=== PATIENT | female | born 1950 | race Hispanic/Latino ===

== ENCOUNTER → 2023-05-05 | Outpatient (CLI) | payer MEDICARE | END | disposition home or self-care (01) | LOC: SHCH 14:25 | PROVIDERS: ATTEND Student in an Organized Health Care Education/Training Program | DX: I11.9 Hypertensive heart disease without heart failure (principal); R06.02 Shortness of breath | CPT/HCPCS: 93306 ==

== ENCOUNTER → 2025-09-20 | Outpatient (CLI) | payer MEDICARE ==
[2025-09-20 08:19] LABS: ASPARTATE AMINOTRANSFERASE 24.0 U/L (10-37); CREATININE 1.1 mg/dL (0.5-1.0); GLOMERULAR FILTR. RATE CALC 53.0 mL/min (>90); GLUCOSE,RANDOM 99.0 mg/dL (70-105); SODIUM SERUM 139.0 mmol/L (136-145); TOTAL PROTEIN, SERUM 7.6 g/dL (6.0-8.3); UREA NITROGEN, BLOOD 15.0 mg/dL (7-18)
== END | disposition home or self-care (01) ==
LOC: RAH 07:33
PROVIDERS: ATTEND Student in an Organized Health Care Education/Training Program
DX: R06.02 Shortness of breath (principal)
CPT/HCPCS: 36415; 80053

== ENCOUNTER → 2025-09-27 | Outpatient (CLI) | payer MEDICARE ==
[~2025-09-27] MED LIST: IOHEXOL-350 75 ML VIAL IV ONE
--- NOTE | 2025-09-27 13:53 | HMCIMG ---
EXAM: CTA NECK WITH AND WITHOUT CONTRAST CLINICAL HISTORY: Occlusion and stenosis of the carotid artery. TECHNIQUE: Axial CT images of the neck were obtained with and without contrast using a CT angiogram protocol targeted to the extracranial carotid and vertebral arteries. 3D rendering reconstructions of the extracranial carotid and vertebral arteries were also performed. The protocol utilizes one or more of the following dose reduction techniques: automated exposure control, adjustment of mA and/or kV according to patient size, and/or use of iterative reconstruction technique. Evaluation of the stenosis was performed based on NASCET criteria. Total exam DLP 85. Total CTDI volume 81.30. CONTRAST: 74 mL of intravenous contrast has been administered. COMPARISON: None. FINDINGS: AORTIC ARCH VESSELS ORIGIN: Atheromatous calcification of the aortic arch. Normal anatomy, patent. RIGHT COMMON CAROTID ARTERY: The right carotid bulb does not show calcified plaques. Unremarkable. No stenosis. RIGHT INTERNAL CAROTID ARTERY: Unremarkable. No stenosis. LEFT COMMON CAROTID ARTERY: Small calcified atheromatous plaques are visualized in the left carotid bulb. Normal caliber. No occlusion, significant stenosis or dissection. LEFT INTERNAL CAROTID ARTERY: Normal caliber. No occlusion, significant stenosis or dissection. RIGHT VERTEBRAL ARTERY: Small calcified atheromatous plaque is present at the ostium of the right vertebral artery without stenosis. No occlusion or dissection. LEFT VERTEBRAL ARTERY: The left vertebral artery ostium is unremarkable. No occlusion, significant stenosis or dissection. NECK SOFT TISSUE: The thyroid is enlarged and appears heterogeneous. There are multiple nodules in both lobes, a few displaying calcifications. Slight tracheal compression and narrowing of the trachea is present by the enlarged thyroid gland. There are enlarged bilateral cervical lymph nodes in the upper, middle and lower jugular digastric regions, the largest measuring 0.7 cm in the left upper jugulodigastric regions. There is mild parotidomegaly with fatty infiltration on both sides. Small mucosal polyp is present in the right maxillary sinus. BONES: There are degenerative changes in the spine. No acute osseous abnormality or fracture. IMPRESSION: 1. No evidence of occlusion or significant stenosis in the carotid or vertebral arteries. 2. Enlarged, heterogeneous thyroid with multiple nodules and slight tracheal compression. Recommend non-emergent sonography for further evaluation. /[place]
== END | disposition home or self-care (01) ==
LOC: RAH 08:04
PROVIDERS: ATTEND Student in an Organized Health Care Education/Training Program
DX: E04.2 Nontoxic multinodular goiter (principal); K11.20 Sialoadenitis, unspecified; J33.8 Other polyp of sinus; I70.0 Atherosclerosis of aorta; I65.22 Occlusion and stenosis of left carotid artery
CPT/HCPCS: 70498; Q9967